=== PATIENT | male | born 1965 | race American Indian/Alaskan Native ===

== ENCOUNTER 2019-09-12 20:34 | Emergency (ER) | payer SELFPAY ==
[2019-09-12 21:05] VITALS: BP 147/71
== END 2019-09-12 23:27 | disposition left against medical advice (07) ==
LOC: ED 20:34
DX: S64.492A Injury of digital nerve of right middle finger, initial encounter (principal); Z53.21 Procedure and treatment not carried out due to patient leaving prior to being seen by health care provider; X58.XXXA Exposure to other specified factors, initial encounter; Y93.89 Activity, other specified; Y92.89 Other specified places as the place of occurrence of the external cause; Y99.8 Other external cause status